=== PATIENT | female | born 2000 | race Caucasian/White ===

== ENCOUNTER 2020-05-06 05:28 | Outpatient (RCR) | payer BC | END 2020-05-06 10:50 | disposition home or self-care (01) | LOC: PREOP 05:28 | PROVIDERS: ATTEND Surgery | DX: Z01.812 Encounter for preprocedural laboratory examination (principal); K21.9 Gastro-esophageal reflux disease without esophagitis; R06.02 Shortness of breath; Z20.828 Contact with and (suspected) exposure to other viral communicable diseases | CPT/HCPCS: 87635 ==

== ENCOUNTER 2020-05-08 09:08 | Day surgery (SDC) | payer BC ==
--- NOTE | 2020-04-23 10:29 | HISTORY AND PHYSICAL ---
DATE OF SERVICE: PRIMARY CARE PHYSICIAN: Kusum Chaves APRN. HISTORY OF PRESENT ILLNESS: The patient is a 19-year-old female, who was seen for complaints with issues of shortness of breath after eating. She reports that this does occur every time she eats and also reports occasional episodes of reflux, but denies any nausea or vomiting. She does report that she does get some substernal pressure sensation in her chest upon eating. She reports that this will eventually resolve and go away. She denies any significant abdominal pain as well as no diarrhea or constipation. She also denied any fever or chills. She does report occasional alcohol use, but denies any tobacco use. She denies any significant use of any spicy, greasy, acidic, caffeine. PAST MEDICAL HISTORY: None. PAST SURGICAL HISTORY: None. ALLERGIES: No known drug allergies. MEDICATIONS: control daily. SOCIAL HISTORY: Negative for smoke. Rare for alcohol. FAMILY HISTORY: Father, diabetes and hypertension. REVIEW OF SYSTEMS: This is a well-nourished female, in no acute distress. She does report occasional episodes of shortness of breath with a food bolus. She does report this will resolve shortly after, but does happen every time she eats. No chest pain, palpitations or diaphoresis. No nausea, vomiting or abdominal pain. No diarrhea or constipation. She does report episodes of reflux, but denies any hematemesis or any coffee ground emesis. No fever or chills. No recent inadvertent weight loss. All other review of systems negative. PHYSICAL EXAMINATION: VITAL SIGNS: Blood pressure 132/80. Current weight is 138.8 at 5 feet 9 inches. CHEST: Clear. Good breath sounds bilaterally. HEART: Regular, no murmurs. EXTREMITIES: No lower extremity edema. Negative Homans sign. HEENT: No scleral icterus. NECK: No cervical lymphadenopathy. ABDOMEN: Soft, nontender and nondistended. SKIN: Warm, dry and pink. NEUROLOGIC: Awake, alert and oriented x3. ASSESSMENT AND PLAN: A 19-year-old female with reflux as well as epigastric pressure sensation associated with mild shortness of breath after taking in food bolus. At this time, we believe that she may have a hiatal hernia and that this will need to be further investigated by upper endoscopy as well as obtain biopsies to rule out any H. pylori as well as Eldridge's esophagus. The risks and benefits of the procedure as well as the procedure and home care instructions were explained to the patient. The patient verbalized understanding of instructions and agrees to proceed as planned. At this time, we will proceed with scheduling the patient for an EGD with biopsies as appropriate. Job ID: [id number] DocumentID: [id number] Dictated Date: 04/23/2020 09:33:52 Administrative Analyst Date: 04/23/2020 09:53:36 Dictated By: CINDY SY APRN
[2020-05-08] VITALS (13 sets, daily range): BP systolic 98–138; BP diastolic 57–83
[~2020-05-08] VITALS: Ht 175 cm; Wt 47.0 kg
[2020-05-08] MEDS ORDERED: NS IV 500 ML 500 ML ONE ×2 (09:21→11:24)
[2020-05-08] MEDS ORDERED: fentaNYL INJECTION 100 MCG/2 ML AMP IVP ONE (09:45)
[2020-05-08] MEDS ORDERED: LIDOCAINE JELLY 2% 6 ML SYRINGE MM PRN (09:45)
[2020-05-08] MEDS ORDERED: HURRICAINE EXT TUBE (BENZOCAINE) XX PRN (09:45)
[2020-05-08] MEDS ORDERED: MIDAZOLAM 5 MG/5 ML (VERSED) VIAL IV ONE (09:45)
[2020-05-08] MEDS ORDERED: BCP PO (09:48)
[2020-05-08] MEDS: NS IV 500 ML 500 ML IV PRN ×2 (09:49→11:15)
[2020-05-08] MEDS ORDERED: fentaNYL INJECTION 100 MCG/2 ML AMP ONE (11:19)
[2020-05-08] MEDS ORDERED: LIDOCAINE JELLY 2% 6 ML SYRINGE ONE (11:19)
[2020-05-08] MEDS ORDERED: MIDAZOLAM 5 MG/5 ML (VERSED) VIAL ONE ×2 (11:20)
[2020-05-08] MEDS ORDERED: HURRICAINE EXT TUBE (BENZOCAINE) ONE (11:20)
--- NOTE | 2020-05-08 11:23 | Conscious Sedation/ASA ---
Conscious Sedation Pre-Proced Time 11:00 ASA Score 1 For ASA 3 and 4: Consider anesthesia and medical clearance. Also, for patients with a history of failed moderate sedation consider anesthesia. Airway Lungs Heart ASA score ASA 1: a normal healthy patient ASA 2: a patient with a mild systemic disease (mid diabetes, controlled hypertension, obesity ASA 3: a patient with a severe systemic disease that limits activity (angina, COPD, prior Myocardial infarction) ASA 4: a patient with an incapacitating disease that is a constant threat to life (CHF, renal failure) ASA 5: a moribund patient not expected to survive 24 hrs. (ruptured aneurysm) ASA 6: a declared brain- patient whose organs are being harvested. For emergent operations, add the letter E after the classification Mallampati Classification Grade 2 Sedation Plan Analgesia, Amnesia, Plan communicated to team members, Discussed options with patient/fam, Discussed risks with patient/fam The patient is an appropriate candidate to undergo the planned procedure, sedation, and anesthesia. The patient immediately re-assessed prior to indication. KENY COX MD May 08, 2020 11:23
--- NOTE | 2020-05-08 11:24 | Progress Note-Pre Operative ---
Pre-Operative Progress Note H&P Reviewed The H&P was reviewed, patient examined and no changes noted. Date Seen by Provider: May 08, 2020 Time Seen by Provider: 11:00 Date H&P Reviewed: May 08, 2020 Time H&P Reviewed: 11:00 Pre-Operative Diagnosis: dysphagia, SOB KENY COX MD May 08, 2020 11:24
[2020-05-08] MEDS ORDERED: PANT40TA2 PO (11:25)
--- NOTE | 2020-05-08 11:25 | Discharge Inst-Surgical ---
D/C Lap Instructions-KIDO New, Converted, or Re-Newed RX: RX on Chart Follow Up Activity as tolerated High Fiber Diet 25g or more per day Avoid Alcohol, Caffeine, Spicy [place] and Acid foods. Drink 64 fluid oz or more of fluids per day. Symptoms to Report: Fever over 101 degree F, Nausea/Vomiting If any problems/questions: Contact your physician or go to Emergency Room KENY COX MD May 08, 2020 11:25
[2020-05-08] MEDS ORDERED: ONDANSETRON 4 MG/2 ML (SDV) Z0FRAN IVP PRN (11:30)
[2020-05-08] MEDS ORDERED: HYDROcodone/APAP 5 MG/325 MG (LORTAB) TAB PO PRN (11:30)
[2020-05-08] MEDS ORDERED: morphine INJ 10 MG/ML 1ML (SYR OR VIAL) IVP PRN ×2 (11:30)
[2020-05-08] MEDS ORDERED: ACETAMINOPHEN 325 MG TABLET PO PRN (11:30)
--- NOTE | 2020-05-08 13:34 | Progress Note-Post Operative ---
Post-Operative Progess Note Surgeon (s)/Scraper Tender (s) Surgeon KENY COX MD Scraper Tender: none Pre-Operative Diagnosis dysphagia, SOB Post-Operative Diagnosis reflux esophagitis(stage 2) with mild distal eosphageal stricture, small HH(1.5cm), moderate gastritis. Procedure & Operative Findings Date of Procedure 05/08/20 Procedure Performed/Findings EGD with bx and balloon dilatation. Anesthesia Type cs Estimated Blood Loss Estimated blood loss (mL): minimal Specimens/Packing Specimens Removed ge jxn, antrum KENY COX MD May 08, 2020 13:34
--- NOTE | 2020-05-08 20:17 | OPERATIVE REPORT ---
DATE OF SERVICE: 05/08/2020 PREOPERATIVE DIAGNOSIS: Dysphagia with intermittent episodes of shortness of breath. POSTOPERATIVE DIAGNOSES: Reflux esophagitis stage II with a possible mild distal esophageal stricture versus hypertonicity of the lower esophageal sphincter. Small hiatal hernia 1.5 cm in size, moderate gastritis. PROCEDURE: EGD with biopsy and balloon dilatation. SURGEON: Keny Cox MD ANESTHESIA: Conscious sedation. ESTIMATED BLOOD LOSS: Minimal. FINDINGS: Reflux esophagitis stage II with a possible mild distal esophageal stricture versus hypertonicity of the lower esophageal sphincter. Small hiatal hernia 1.5 cm in size, moderate gastritis. DISPOSITION: The patient tolerated the procedure well. INDICATIONS: The patient is a 19-year-old female who has had issues with dysphagia for specific types of foods and when this does occur, she states shortness of breath. She also feels substernal pressure sensation at that time. She does report that she has some issues with reflux at times on an intermittent basis. DESCRIPTION OF PROCEDURE: The patient was brought to the endoscopy suite, laid in the left lateral decubitus position with head slightly elevated. After adequate IV pain and sedative medications and conscious sedation anesthesia, the mouthpiece was applied. The endoscope was placed in the mouth, visualizing the pharynx and hypopharyngeal region. Vocal cords, epiglottis and vallecula identified and appeared to be normal. The endoscope was then gently intubated at esophageal opening and esophagus insufflated. The endoscope was then advanced to the first, second and third portion of esophagus at the level of the GE junction, reflux esophagitis stage II identified. There was also a potential mild distal esophageal stricture versus hypertonic lower esophageal sphincter. A biopsy was taken with forceps with visualization of good hemostasis. The endoscope was then advanced into the stomach and endoscope retroflexed, visualizing a small hiatal hernia approximately 1 to 1.5 cm in size. There was a moderate severity gastritis as well as duodenitis. Biopsies were taken of the duodenum as well as the antrum. We then proceeded with dilatation of the distal esophageal stricture. The balloon was placed in the stomach and pulled back to the area of stricture. We first proceeded to 2 and then 4 atmospheres of pressure. At around 5 atmospheres of pressure, there was a mild to moderate resistance and we were able to go to 6 atmospheres of pressure or 20 mm in luminal diameter with moderate resistance and left this in place for 60 seconds. The balloon was then desufflated and removed with visualization of good hemostasis as well as no mucosal tears. Endoscope was then slowly withdrawn while taking a second look and suctioning of residual air with no additional findings. The patient tolerated the procedure well. We will recommend the necessary lifestyle and diet accommodation including small and more frequent meals, avoidance of eating at night as well as head elevation while lying supine. She also needs to avoid caffeinated beverages, spicy, greasy and acidic foods. We will also start her on Protonix daily. Job ID: [id number] DocumentID: [id number] Dictated Date: 05/08/2020 12:52:15 Utilities And Maintenance Supervisor Date: 05/08/2020 20:16:44 Dictated By: KENY COX MD
== END 2020-05-08 12:30 | disposition home or self-care (01) ==
LOC: ENDO 09:08
PROVIDERS: ATTEND Surgery
DX: K21.00 Gastro-esophageal reflux disease with esophagitis, without bleeding (principal); K44.9 Diaphragmatic hernia without obstruction or gangrene; K29.70 Gastritis, unspecified, without bleeding; Z91.040 Latex allergy status; Z83.3 Family history of diabetes mellitus; Z82.49 Family history of ischemic heart disease and other diseases of the circulatory system
CPT/HCPCS: 84703; 88305

== ENCOUNTER → 2021-07-24 | Outpatient (CLI) | payer BC ==
[~2021-07-24] MED LIST: BCP PO; PANT40TA2 PO
--- NOTE | 2021-07-25 13:23 | Diagnostic Imaging Report ---
INDICATION: Hyperthyroidism. The patient was given 202 uCi of I-123 orally and a 4 hour and 24 hour thyroid uptake was obtained. In addition, a thyroid scan was performed. Four hour uptake is 48%. 24-hour uptake is 87%. Thyroid scan shows homogeneous uptake of activity throughout both lobes of the thyroid. There is some questionable mild asymmetric uptake in the lower pole left lobe of the thyroid. A hyperfunctioning nodule cannot be entirely excluded. Ultrasound would be recommended. IMPRESSION: Hyperthyroidism with 24 hour thyroid uptake of 87%. There is a questionable area of increased uptake in the lower pole left lobe, suspicious for a hot nodule. Thyroid ultrasound would be recommended for further evaluation, if not already performed. Dictated by: Dictated on workstation # [id number]
== END ==
LOC: CARD 11:30
PROVIDERS: ATTEND Nurse Practitioner Family
DX: E05.90 Thyrotoxicosis, unspecified without thyrotoxic crisis or storm (principal)
CPT/HCPCS: 78014; A9516

== ENCOUNTER → 2021-07-30 | Outpatient (CLI) | payer BC ==
--- NOTE | 2021-07-30 14:28 | Diagnostic Imaging Report ---
PROCEDURE: US Thyroid. TECHNIQUE: Multiple real-time grayscale images were obtained of the thyroid in various projections. INDICATION: Thyroid nodule. COMPARISON: 07/25/2021. FINDINGS: The right lobe of the thyroid gland measures 4.9 x 1.4 x 1.6 cm. It demonstrates a diffusely heterogeneous echotexture without discrete nodule. The left lobe of the thyroid gland measures 4.9 x 1.2 x 1.6 cm. It demonstrates a diffusely heterogeneous echotexture. A 0.9 x 1.1 x 0.5 cm ovoid circumscribed hypoechoic nodule is noted within the inferior pole of the left thyroid lobe. The isthmus is unremarkable. IMPRESSION: 1.1 cm TI-RADS 4 nodule within the inferior pole of the left thyroid lobe. Typically, this would suggest that follow-up ultrasound is recommended in one year to ensure stability. However, as there is increased radiotracer activity at this location on the nuclear medicine thyroid scan, consideration for a fine-needle aspiration should be made. Dictated by: Dictated on workstation # [id number]
== END ==
LOC: RAD 12:30
PROVIDERS: ATTEND Nurse Practitioner Family
DX: E04.1 Nontoxic single thyroid nodule (principal)
CPT/HCPCS: 76536

== ENCOUNTER → 2021-08-11 | Outpatient (CLI) | payer BC ==
[~2021-08-11] VITALS: Ht 175 cm; Wt 61.0 kg
[~2021-08-11] MED LIST changes: +LIDOCAINE 1% INJ 20 ML VIAL INJ ONE; +LIDOCAINE 1% INJ 50 ML (XYLOCAINE) VIAL ONE
--- NOTE | 2021-08-11 15:59 | Diagnostic Imaging Report ---
INDICATION: Left thyroid nodule. PROCEDURE: The patient presents for ultrasound-guided fine-needle aspiration and biopsy. The patient was brought to the procedure room and placed on the table in supine position. Ultrasound imaging of the left neck was performed to evaluate appropriate entry site. Left neck was then prepped and draped in the usual sterile fashion. A small amount of 1% lidocaine was utilized for local anesthesia. A total of 4 passes were made into the area of heterogeneous hypoechogenicity lower pole left lobe of the thyroid utilizing 25-gauge needles and fine-needle aspiration technique. A single pass was made with a Rotex needle and Rotex biopsy was performed. [place] were removed and hemostasis was obtained. The patient tolerated the procedure well and left the department in stable condition. IMPRESSION: Successful ultrasound-guided fine-needle aspiration and Rotex biopsy left lobe thyroid. Pathology results are currently pending. Dictated by: Dictated on workstation # [id number]
== END ==
LOC: RAD 14:00
PROVIDERS: ATTEND Nurse Practitioner Family
DX: E04.1 Nontoxic single thyroid nodule (principal)
CPT/HCPCS: 10005